=== PATIENT | female | born 1940 | race Caucasian/White ===

== ENCOUNTER 2018-08-30 20:09 | Emergency (ER) | payer OTHER, MEDICAID ==
[~2018-08-30] VITALS: Wt 87.7 kg
[~2018-08-30 20:09] MED LIST: AMOX500C2 PO; ASPI-831 PO; ATOR20TA38 PO; GABA100C14 PO; IPRA4AER INHALATION; LANT3I SC; LOSA100T15 PO; MTF1000T PO; NITR-58 PO; OMEP20CA9; PREMVAG VAG
[2018-08-30] MEDS ORDERED: ATOR20TA38 PO (21:14)
[2018-08-30] MEDS ORDERED: ASPI-817 PO (21:14)
[2018-08-30] MEDS ORDERED: LOSA100T15 PO (21:15)
[2018-08-30] MEDS ORDERED: ATEN-51 PO (21:15)
[2018-08-30] MEDS ORDERED: IBUP-1545 PO (21:15)
[2018-08-30] MEDS ORDERED: NPH,100I5 SQ (21:16)
[2018-08-30] MEDS ORDERED: PANT40TA4 PO (21:17)
[2018-08-30] MEDS ORDERED: DULO20CA17 PO (21:17)
[2018-08-30] MEDS ORDERED: METF100010 PO (21:17)
[2018-08-30] MEDS ORDERED: HYDR25TA6 PO (21:18)
[2018-08-30] MEDS ORDERED: BENZ-5 PO (21:18)
[2018-08-30] MEDS ORDERED: ALBU18HF INHALATION (22:28)
[2018-08-30] MEDS ORDERED: DOXY100T20 PO (22:28)
[2018-08-30 22:30] VITALS: BP 139/59; PULSE 77; RESP 19
--- NOTE | 2018-08-30 23:34 | ERD ---
ER Documentation Chief Complaint Chief Complaint shortness of breath/cough x 2 days, c/o body aches HPI 77-year-old female who presents to the emergency room with 2-3 days of symptoms including rhinorrhea, nasal congestion, cough. The cough is dry and nonproductive. She describes generalized malaise and body aches. No chest pain no chest pressure. No significant shortness of breath. ROS All systems reviewed and are negative except as per history of present illness. Medications Home Meds Active Scripts Albuterol Sulfate* (Ventolin HFA*) 18 Gm Hfa.aer.ad, 2 PUFF INHALATION Q4H, #1 INHALER Prov:FERMIN GOLDMAN MD 08/30/18 Doxycycline Hyclate* (Doxycycline Hyclate*) 100 Mg Tablet.dr, 100 MG PO BID for 7 Days, TAB Prov:FERMIN GOLDMAN MD 08/30/18 Reported Medications Hydrochlorothiazide* (Hydrochlorothiazide*) 25 Mg Tab, 25 MG PO DAILY, #30 TAB 08/30/18 Benzonatate* (Benzonatate*) 100 Mg Capsule, 100 MG PO TID PRN for COUGH, CAP 08/30/18 Duloxetine Hcl* (Duloxetine Hcl*) 20 Mg Capsule.dr, 20 MG PO DAILY, #30 CAP 08/30/18 Pantoprazole* (Pantoprazole*) 40 Mg Tablet.dr, 40 MG PO AC BREAKFAST, TAB 08/30/18 Metformin Hcl* (Metformin Hcl*) 1,000 Mg Tablet, 1000 MG PO WITH BREAKFAST, #30 TAB 08/30/18 NPH, Human Insulin Isophane (Humulin N Kwikpen) 100 Unit/1 Ml Insuln.pen, 45 UNIT SQ BID, EA 08/30/18 Ibuprofen* (Ibuprofen*) 800 Mg Tab, 800 MG PO TID, TAB 08/30/18 Atenolol* (Atenolol*) 25 Mg Tablet, 25 MG PO DAILY, #30 TAB 08/30/18 Losartan Potassium* (Losartan Potassium*) 100 Mg Tablet, 100 MG PO DAILY, TAB 08/30/18 Atorvastatin Calcium* (Atorvastatin Calcium*) 20 Mg Tablet, 20 MG PO QHS, #30 TAB 08/30/18 Aspirin* (Aspirin* EC) 81 Mg Tablet.dr, 81 MG PO DAILY, TAB 08/30/18 Discontinued Reported Medications Nitrofurantoin Monohyd Macrocr* (Macrobid*) 100 Mg Capsr, 100 MG PO BID, CAP STARTED ON 03/24/16 03/25/16 Gabapentin* (Gabapentin*) 100 Mg Capsule, 100 MG PO TID, #90 CAP 11/24/15 Estrogens Conjugated* (Premarin* Vaginal Cream) 1 Applic Cr, 1 APPLIC VAG BID, T UB 10/16/15 Losartan Potassium* (Losartan Potassium*) 100 Mg Tablet, 100 MG PO DAILY, TAB 10/16/15 Atorvastatin Calcium* (Atorvastatin Calcium*) 20 Mg Tablet, 20 MG PO QHS, #30 TAB 10/16/15 Omeprazole* (Prilosec*) 20 Mg Capsule.dr, DAILY 01/28/10 Discontinued Scripts Amoxicillin* (Amoxicillin*) 500 Mg Cap, 500 MG PO TID for 7 Days, CAP Prov:NAIN CAMPBELL 03/25/16 Insulin Glargine* (Lantus*) 100 Unit/Ml Soln, 20 UNIT SC QPM, #1 BOT Prov:TYRONE CAMPBELL MD 11/29/15 Metformin* (Glucophage*) 1,000 Mg Tablet, 1000 MG PO BID, #60 TAB Prov:TYRONE CAMPBELL MD 11/25/15 Albuterol/Ipratropium* (Combivent Respimat*) 20-100 Mcg/Inh - 4 Gm Aer.w.adap, 1 PUFF INHALATION QID, #1 INHALER Prov:TYRONE CAMPBELL MD 11/25/15 Aspirin (Aspirin) 81 Mg Chew, 81 MG PO DAILY, #30 TAB Prov:TYRONE CAMPBELL MD 11/25/15 Allergies Allergies: Coded Allergies: No Known Allergy (Verified , 08/30/18) PMhx/Soc History of Surgery: Yes (HERNIA REPAIR, CHOLECYSTECTOMY, ) Anesthesia Reaction: No Hx Neurological Disorder: No Hx Respiratory Disorders: Yes (ASTHMA) Hx Cardiac Disorders: Yes (CHOLESTEROL HTN) Hx Psychiatric Problems: Yes (ANXIETY) Hx Miscellaneous Medical Probl: No Hx Alcohol Use: No Hx Substance Use: No Hx Tobacco Use: Yes Smoking Status: Never smoker FmHx Family History: No diabetes Physical Exam Vitals Vital Signs Date Temp Pulse Resp B/P (MAP) Pulse Ox O2 O2 Flow FiO2 Time Delivery Rate 08/30/18 77 19 139/59 98 Room Air 22:30 (85) 08/30/18 77 18 126/54 97 Room Air 22:00 (78) 08/30/18 77 18 124/54 97 Room Air 21:58 (77) 08/30/18 97.4 81 18 146/77 98 Room Air 21:25 (100) 08/30/18 97.7 97 18 160/77 96 20:14 (104) Physical Exam General: Well developed, well nourished, no acute distress Head: Normocephalic, atraumatic. Eyes: Pupils equally reactive, EOM intact ENT: Moist mucous membranes Neck: Supple, no lymphadenopathy Respiratory: Lungs clear bilaterally, no distress Cardiovascular: RRR, no murmurs, rubs, or gallops Abdominal: Soft, non-tender, non-distended, no peritoneal signs : Deferred MSK: No edema, no unilateral swelling, 5/5 strength Neurologic: Alert and oriented, moving all extremities, normal speech, no focal weakness, no cerebellar signs Skin: No rash Psych: Normal mood Procedures/MDM EKG, MONITORS, & DIAGNOSTIC IMAGING: Chest x-ray: I reviewed and interpreted a 1 view of the chest Mediastinum: No enlargement Cardiac silhouette: No cardiomegaly Airspace: Clear lung fuller bilaterally without evidence of pneumothorax Bones: No evidence of fracture LAB INTERPRETATION: Influenza negative MEDICAL DECISION MAKING: Patient's presentation is consistent with uncomplicated upper respiratory tract infection. Given the patient's age however, concern for possible pneumonia warrants x-ray imaging. However, the patient has clear lung sounds, no respiratory distress and no hypoxia. Influenza screen appropriate. Low pretest probability. Patient symptoms greater than 72 hours unlikely to benefit from Tamiflu either way. ER COURSE: * Diagnostic imaging shows no evidence of focal pneumonia. Influenza negative. * Given the patient's cough and age I do believe coverage with doxycycline would be reasonable to cover for community acquired bacteria but lower clinical concern for pneumonia. No indication for hospitalization. Good lung sounds, good aeration, normal oxygen saturation. She is well-appearing and afebrile with good vital signs. Outpatient management will be appropriate. CONSULTATION: [None] DISPOSITION PLAN: The patient does not have an identifiable emergent medical condition that warrants inpatient hospitalization at this time. The patient is deemed safe for discharge with outpatient follow-up. We discussed follow up with the patient's primary care doctor within 24 to 48 ho urs as needed. We also discussed return to the emergency room for worsening symptoms or worsening condition. Outpatient referral: [None required] Discharge Medications: Doxycycline, albuterol Departure Diagnosis: Primary Impression: Acute lower respiratory tract infection Condition: Stable Patient Instructions: Uri, Viral W/ Wheezing (Adult) Additional Instructions: Llame al doctor nombrado abajo (Referral Sources) MAANA y dariela clarice JOYCE PARA DENTRO DE CLARICE SEMANA. Dgale a la secretaria que nosotros le instruimos hacer esta joyce.Avise o llame si oliva condicin se empeora antes de la joyce. FERMIN GOLDMAN MD Aug 30, 2018 23:34
== END 2018-08-30 23:47 | disposition home or self-care (01) ==
LOC: E/R 20:09
DX: J22 Unspecified acute lower respiratory infection (principal); J45.901 Unspecified asthma with (acute) exacerbation; I10 Essential (primary) hypertension; Z79.82 Long term (current) use of aspirin; Z87.891 Personal history of nicotine dependence
CPT/HCPCS: 71046; 87400

== ENCOUNTER 2019-04-23 12:40 | Emergency (ER) | payer OTHER, MEDICAID ==
[~2019-04-23] VITALS: Ht 154.9 cm; Wt 112.0 kg
[~2019-04-23 12:40] MED LIST changes: +ALBU18HF INHALATION; -AMOX500C2 PO; +ASPI-817 PO; -ASPI-831 PO; +ATEN-51 PO; +BENZ-5 PO; +DOXY100T20 PO; +DULO20CA17 PO; -GABA100C14 PO; +HYDR25TA6 PO; +IBUP-1545 PO; -IPRA4AER INHALATION; -LANT3I SC; +METF100010 PO; -MTF1000T PO; +NAPR-985 PO; -NITR-58 PO; +NPH,100I5 SQ; -OMEP20CA9; +PANT40TA4 PO; -PREMVAG VAG
[2019-04-23 13:07] VITALS: BP 149/71; PULSE 83; RESP 18; Ht 154.9 cm; Wt 112.0 kg
== END 2019-04-23 16:01 | disposition home or self-care (01) ==
LOC: FTE 12:40
DX: S99.911A Unspecified injury of right ankle, initial encounter (principal); I10 Essential (primary) hypertension; J45.909 Unspecified asthma, uncomplicated; S99.912A Unspecified injury of left ankle, initial encounter; E11.9 Type 2 diabetes mellitus without complications; W18.39XA Other fall on same level, initial encounter; Y92.9 Unspecified place or not applicable; Z79.82 Long term (current) use of aspirin; Z79.4 Long term (current) use of insulin; Z87.891 Personal history of nicotine dependence